=== PATIENT | female | born 1940 | race Two or more races ===

== ENCOUNTER 2019-11-26 20:36 | Emergency (ER) | payer MEDICARE, MEDICAID ==
[2019-11-26] MEDS ORDERED: Sodium Chloride 0.9% 10 ML Syringe FLUSH PRN (20:57)
[2019-11-26] MEDS ORDERED: Ondansetron 4 MG/2 ML SDV IVPUSH ONE (20:58)
[2019-11-26] MEDS ORDERED: HYDROmorphone 1 MG/ML Syringe IVPUSH ONE ×2 (20:58→22:26)
--- NOTE | 2019-11-26 21:23 | EDM.PDOC ---
ED HPI GENERAL MEDICAL PROBLEM - General Chief Complaint: Upper Extremity Injury/Pain Stated Complaint: RIGHT WRIST INJUSY Time Seen by Provider: 11/26/19 20:49 Source of Information: Reports: Patient, Family History Limitations: Reports: Language Barrier - History of Present Illness INITIAL COMMENTS - FREE TEXT/NARRATIVE: Elena is a 78 year old female who presents today for right wrist pain and deformity. Daughter is present for translation, patient speaks primarily Kiswahili. Reports about 1 hour prior to arrival she was walking on uneven sidewalk when she tripped and fell. fell onto an outstretched arm. reports right wrist pain, numbness, tingling and swelling and deformity. She is right handed. Past medical history includes chronic constipation, diabetes type II, hyp ertension and hypercholestermia. Right Wrist Pain Score (Numeric/FACES): 7 - Related Data Allergies Allergy/AdvReac Type Severity Reaction Status Date / Time No Known Allergies Allergy Verified 11/26/19 20:45 Home Meds: Home Meds Acetaminophen/HYDROcodone [Law[place] 325-5 MG] 1 tab PO Q4H PRN #20 tablet 11/26/19 [Rx] Past Medical History Cardiovascular History: Reports: High Cholesterol, Hypertension Endocrine/Metabolic History: Reports: Diabetes, Type II, Hypothyroidism - Past Surgical History GI Surgical History: Reports: Appendectomy, Cholecystectomy Social & Family History - Tobacco Use Smoking Status *Q: Never Smoker Second Hand Smoke Exposure: No - Caffeine Use Caffeine Use: Reports: None - Recreational Drug Use Recreational Drug Use: No Review of Systems - Review of Systems Review Of Systems: See Below Musculoskeletal: Reports: Arm Pain Neurological: Reports: Numbness, Tingling ED EXAM, GENERAL - Physical Exam Exam: See Below Exam Limited By: Language Barrier General Appearance: Alert, WD/WN, No Apparent Distress Respiratory/Chest: No Respiratory Distress Cardiovascular: Normal Peripheral Pulses, Regular Rate, Rhythm Peripheral Pulses: 2+: Radial (R) Extremities: Limited Range of Motion, Other (right wrist deformity; swelling; able to wiggle right fingers) Neurological: Alert, Oriented, Normal Cognition, Other (reports good sensation to light touch to the right hand and fingers) Psychiatric: Normal Affect, Normal Mood Skin Exam: Warm, Dry, Normal Color ED TRAUMA EXTREMITY PROCEDURES - Splinting Right Upper Extremity Splint Site: right forearm Pre-Procedure NV Status: Normal Post-Procedure NV Status: Normal Splint Material: Sling, Other (orthoglass) Splint Design: Sugar Tong Applied & Form Fitted By: Provider, Nurse Provider Post-Splint Application NV Check: NV Status Normal, Good Position Complications: No Course - Vital Signs Last Recorded V/S: Last Vital Signs Temp 98 F 11/26/19 20:42 Pulse 69 11/26/19 20:42 Resp 16 11/26/19 20:42 BP 169/64 H 11/26/19 20:42 Pulse Ox 92 L 11/26/19 20:42 - Orders/Labs/Meds Orders: Active Orders 24 hr Category Date Time Status Peripheral IV Care [RC] . DIRECTED Care 11/26/19 20:57 Active CORONAVIRUS COVID-19 BONILLA [MOLEC] Stat Lab 11/26/19 22:31 Ordered Sodium Chloride 0.9% [Saline Flush] Med 11/26/19 20:57 Active 10 ml FLUSH ASDIRECTED PRN Durable Medical Equipment for Discharge [DME for Oth 11/26/19 22:41 Ordered Discharge] [COMM] Stat Peripheral IV Insertion Adult [OM.PC] Routine Oth 11/26/19 20:57 Ordered Medication Orders Sodium Chloride (Saline Flush) 10 ml FLUSH ASDIRECTED PRN PRN Reason: Keep Vein Open Last Admin: 11/26/19 21:39 Dose: 10 ml Documented by: FAITH Meds: Medications Generic Name Dose Route Start Last Admin Trade Name Freq PRN Reason Stop Dose Admin Sodium Chloride 10 ml 11/26/19 20:57 11/26/19 21:39 Saline Flush FLUSH 10 ml ASDIRECTED PRN Administration Keep Vein Open Discontinued Medications Generic Name Dose Route Start Last Admin Trade Name Freq PRN Reason Stop Dose Admin Hydromorphone HCl 0.5 mg 11/26/19 20:58 11/26/19 21:40 Dilaudid IVPUSH 11/26/19 20:59 0.5 mg ONETIME ONE Administration Hydromorphone HCl 0.5 mg 11/26/19 22:26 11/26/19 22:40 Dilaudid IVPUSH 11/26/19 22:27 0.5 mg ONETIME ONE Administration Ondansetron HCl 4 mg 11/26/19 20:58 11/26/19 21:38 Zofran IVPUSH 11/26/19 20:59 4 mg ONETIME ONE Administration - Radiology Interpretation Free Text/Narrative:: Right wrist: 3 views right wrist were obtained. Distal radial fracture is noted which is slightly comminuted with articular extension. Posterior impaction is seen causing dorsal tilt of the distal radial articular margin. Slightly comminuted ulnar styloid avulsion fracture is also noted. Degenerative change is noted within the CMC joint of the thumb. Bony structures are osteopenic. Soft tissue swelling is also noted. Impression: 1. Wrist fracture as described above. 2. Degenerative change. 3. Other findings as noted above. - Re-Assessments/Exams Free Text/Narrative Re-Assessment/Exam: 11/26/19 22:42 I reviewed the xrays with the patient and her daughter. I discussed the case with Dr. Lane. He viewed the xrays [facility] to discuss surgical repair options. I discussed this with the patient and her daughter. We will splint her tonight and have them see [facility] Thursday. 11/26/19 23:17 Patient splinted. Tolerated well. Discharge instructions as documented. covid test pending, unfortunately out of rapid reagent 2 day test sent. Departure - Departure Time of Disposition: 22:45 Disposition: Home, Self-Care 01 Condition: Fair Clinical Impression: Fracture of radius and ulna Qualifiers: Encounter type: initial encounter Fracture type: closed Laterality: right Qualified Code(s): S52.91XA - Unspecified fracture of right forearm, initial encounter for closed fracture - Discharge Information *PRESCRIPTION DRUG MONITORING PROGRAM REVIEWED*: No *COPY OF PRESCRIPTION DRUG MONITORING REPORT IN PATIENT ADAM: No Prescriptions: Acetaminophen/HYDROcodone [[place] 325-5 MG] 1 tab PO Q4H PRN #20 tablet PRN Reason: Pain Referrals: PCP,Not In Area [Primary Care Provider] - Matthieu Lane MD [Ordering Only Provider] - Forms: ED Department Discharge Additional Instructions: you were given medication in the ER that can affect your ability to drive and operate machinery. Do not drive or operate machinery within 12 hours of taking prescription narcotic pain medication. norco 1-2 tabs PO every 4-6 hours prn pain. norco is habit forming, take as few of these as needed to control your pain. Do not drive or operate machinery within 12 hours of taking norco. take otc miralax and drink plenty of fluids to prevent worsening constipation. Follow-up with [facility] in [place], [place]. Below is there contact information. [facility] [address] [place], about [address] or Address: [facility] [address] [address] Please note they are on central time. Please call first thing thursday (7am [place]) for appointment time. Nothing to eat or drink after midnight on Thursday night in case you opt for surgery. they will not be able to operate if you eat prior to surgery. you had a covid test done in the ER tonight. We will call you with the results when available, may be 2-3 days. rest, elevate and ice the area even over the casts. this will help bring down the swelling. even if you opt for surgery in [place] i encourage you to see [facility] thursday so they can discuss your option and cast you for more comfortable travel. please return to the ER should your symptoms change or worsen Sepsis Event Note (ED) - Evaluation Sepsis Screening Result: No Definite Risk - Focused Exam Vital Signs: Vital Signs Temp Pulse Resp BP Pulse Ox 11/26/19 20:42 98 F 69 16 169/64 H 92 L - My Orders Last 24 Hours: My Active Orders 11/26/19 20:57 Peripheral IV Care [RC] . DIRECTED Sodium Chloride 0.9% [Saline Flush] 10 ml FLUSH ASDIRECTED PRN Peripheral IV Insertion Adult [OM.PC] Routine 11/26/19 22:31 CORONAVIRUS COVID-19 BONILLA [MOLEC] Stat 11/26/19 22:41 Durable Medical Equipment for Discharge [DME for Discharge] [COMM] Stat - Assessment/Plan Last 24 Hours: My Active Orders 11/26/19 20:57 Peripheral IV Care [RC] . DIRECTED Sodium Chloride 0.9% [Saline Flush] 10 ml FLUSH ASDIRECTED PRN Peripheral IV Insertion Adult [OM.PC] Routine 11/26/19 22:31 CORONAVIRUS COVID-19 BONILLA [MOLEC] Stat 11/26/19 22:41 Durable Medical Equipment for Discharge [DME for Discharge] [COMM] Stat
--- NOTE | 2019-11-26 21:54 | CR ---
Right wrist: 3 views right wrist were obtained. Distal radial fracture is noted which is slightly comminuted with articular extension. Posterior impaction is seen causing dorsal tilt of the distal radial articular margin. Slightly comminuted ulnar styloid avulsion fracture is also noted. Degenerative change is noted within the CMC joint of the thumb. Bony structures are osteopenic. Soft tissue swelling is also noted. Impression: 1. Wrist fracture as described above. 2. Degenerative change. 3. Other findings as noted above. Diagnostic code #3 Study was dictated in MDT
== END 2019-11-26 23:35 | disposition home or self-care (01) ==
LOC: JD.ED 20:36
DX: S52.611A Displaced fracture of right ulna styloid process, initial encounter for closed fracture (principal); S52.501A Unspecified fracture of the lower end of right radius, initial encounter for closed fracture; I10 Essential (primary) hypertension; E11.9 Type 2 diabetes mellitus without complications; Z11.59 Encounter for screening for other viral diseases
CPT/HCPCS: 29125; 73110; 96374; 96375; 96376; 99284; J1170; J2405; U0002; 99283